=== PATIENT | female | born 1935 | race Caucasian/White ===

== ENCOUNTER 2022-11-06 16:52 | Observation (INO) | payer OTHER ==
[2022-11-06] MEDS ORDERED: MECLIZINE HCL 12.5 MG TABLET PO ONE (18:00)
[2022-11-06] MEDS ORDERED: METOCLOPRAMIDE HCL INJECTION 10 MG/2 ML VIAL IVPB ONE (18:00)
[2022-11-06] MEDS ORDERED: LIDOCAINE 5% TOPICAL PATCH TP ONE (18:07)
[2022-11-06] MEDS ORDERED: ACETAMINOPHEN 1000 MG/100 ML BAG IVPB ONE (18:08)
[2022-11-06] MEDS ORDERED: ACETAMINOPHEN INJECTION 100 ML IVPB ONE (18:17)
[2022-11-06] MEDS ORDERED: MECLIZINE HCL 12.5 MG TABLET ONE (18:17)
[2022-11-06] MEDS ORDERED: LIDOCAINE 5% TOPICAL PATCH ONE (18:17)
[2022-11-06] MEDS ORDERED: METOCLOPRAMIDE HCL INJECTION 10 MG/2 ML VIAL ONE (18:17)
[2022-11-06 19:03] LABS: BASO % 0.5 % (0-2.0); EOS % 1.4 % (0-4.5); HEMATOCRIT 38.8 % (32.4-45.2); HEMOGLOBIN 13.3 GM/dL (10.7-15.3); LYMPH % 29.2 % (8-40); MCH 31.7 pg (25.7-33.7); MCHC 34.2 g/dl (32.0-36.0); MEAN CELL VOLUME 92.8 fl (80-96); MEAN PLT VOLUME 7.7 fl (7.5-11.1); MONO % 8.7 % (3.8-10.2); NEUT % 60.2 % (42.8-82.8); PLATELET COUNT 189 10^3/uL (134-434); RBC 4.18 M/mm3 (3.60-5.2); RDW 12.8 % (11.6-15.6); WHITE BLOOD COUNT 7.1 K/mm3 (4.0-10.0)
[2022-11-06 19:34] LABS: ALBUMIN 3.8 g/dl (3.4-5.0); MAGNESIUM 2.5 mg/dL (1.8-2.4)
[2022-11-06 19:37] LABS: CREATININE 0.6 mg/dL (0.55-1.3)
[2022-11-06 19:39] LABS: BILIRUBIN,TOTAL 0.5 mg/dL (0.2-1); TOT PROT 7.7 g/dl (6.4-8.2)
[2022-11-06] MEDS ORDERED: LIDOCAINE PATCH REMOVAL MC SCH (22:00)
[2022-11-06] MEDS ORDERED: ACETAMINOPHEN 325 MG TABLET (FP) PO PRN (22:28)
[2022-11-07 05:39] VITALS: BMI 30.9
[2022-11-07 07:31] LABS: BASO % 0.6 % (0-2.0); EOS % 2.3 % (0-4.5); HEMATOCRIT 34.7 % (32.4-45.2); HEMOGLOBIN 12.2 GM/dL (10.7-15.3); LYMPH % 31.6 % (8-40); MCH 32.9 pg (25.7-33.7); MCHC 35.1 g/dl (32.0-36.0); MEAN CELL VOLUME 93.6 fl (80-96); MEAN PLT VOLUME 8.3 fl (7.5-11.1); MONO % 10.7 % (3.8-10.2); NEUT % 54.8 % (42.8-82.8); PLATELET COUNT 172 10^3/uL (134-434); WHITE BLOOD COUNT 5.4 K/mm3 (4.0-10.0)
[2022-11-07 08:25] LABS: CALCIUM 8.5 mg/dL (8.5-10.1)
[2022-11-07 08:26] LABS: ALBUMIN 3.1 g/dl (3.4-5.0); BLOOD UREA NITROGEN 16.1 mg/dL (7-18)
[2022-11-07 08:30] LABS: CREATININE 0.5 mg/dL (0.55-1.3)
[2022-11-07 08:31] LABS: BILIRUBIN,TOTAL 0.6 mg/dL (0.2-1); TOT PROT 6.5 g/dl (6.4-8.2)
[2022-11-07] MEDS ORDERED: FLU VACC QS2022-23(6MOS UP)/PF 60 MCG/0.5 ML SYRINGE IM ONE (10:00)
[2022-11-07] MEDS ORDERED: MECLIZINE HCL 25 MG TABLET (FP) PO PRN (10:27)
[2022-11-07] MEDS: ENOXAPARIN NA (PORCINE) 40 MG/0.4 ML DISP.SYRIN SQ SCH (11:24)
[2022-11-07 21:36] LABS: RETICULOCYTES 1.08 % (0.5-1.5)
[2022-11-07 22:58] LABS: ANISOCYTOSIS 0; MACROCYTOSIS 0
[2022-11-08 07:14] VITALS: RESP 18
[2022-11-08] MEDS: ENOXAPARIN NA (PORCINE) 40 MG/0.4 ML DISP.SYRIN SQ SCH (09:03)
[2022-11-08 15:46] VITALS: BP 136/76; PULSE 75; TEMP 98.3
== END 2022-11-08 15:52 | disposition home or self-care (01) ==
LOC: JER 16:52 → UNDOADMOB 19:15 → JERBED 19:15 → OBSVTOIN 22:25 → INTOOBSV 22:25 → JERBED 11-07 04:39 → J4W 11-07 04:39 → JERBED 11-07 11:33 → J4W 11-07 11:33
PROVIDERS: ADMIT Internal Medicine; ATTEND Internal Medicine
PROC: 3E033GC Introduction of Other Therapeutic Substance into Peripheral Vein, Percutaneous Approach (ICD-10-PCS; principal; 2022-11-07)
PROC: 3E013GC Introduction of Other Therapeutic Substance into Subcutaneous Tissue, Percutaneous Approach (ICD-10-PCS; 2022-11-07)
PROC: 3E02340 Introduction of Influenza Vaccine into Muscle, Percutaneous Approach (ICD-10-PCS; 2022-11-07)
DX: R55 Syncope and collapse (principal); R42 Dizziness and giddiness; I10 Essential (primary) hypertension; M17.11 Unilateral primary osteoarthritis, right knee; S09.90XA Unspecified injury of head, initial encounter; W18.39XA Other fall on same level, initial encounter; Y93.89 Activity, other specified; Y92.002 Bathroom of unspecified non-institutional (private) residence as the place of occurrence of the external cause
CPT/HCPCS: 0241U-QW; 36415; 70450-TC; 71045-TC-FY; 72125-TC; 80053; 80061; 83036; 83735; 83880; 84443; 84484; 85025; 85045; 90471; 93005; 93010; 93306-TC; 93880-TC; 96372; 96374; 96375; 97116-GP; 97162-GP; 99285-25; G0378; Q2036